=== PATIENT | female | born 2000 | race Caucasian/White ===

== ENCOUNTER 2021-07-08 12:02 | Emergency (ER) | payer MEDICAID ==
[~2021-07-08] VITALS: Ht 157.5 cm; Wt 55.9 kg
[2021-07-08] MEDS ORDERED: ondansetron/PF 4mg/2ml inj IV ONE (12:15)
[2021-07-08] MEDS ORDERED: morphine 4 MG/ML inj SYRINge IV ONE ×2 (12:15→15:20)
[2021-07-08 12:44] LABS: BASOPHILS % (AUTO) 0.4 % (0-1); EOSINOPHILS # (AUTO) 0.1 X10'3 (0-0.9); HEMATOCRIT 41.6 % (35.0-45.0); HEMOGLOBIN 14.2 g/dl (12.0-16.0); LYMPHOCYTES # (AUTO) 1.4 X10'3 (1.1-4.8); LYMPHOCYTES % (AUTO) 27.8 % (21-51); MEAN CORPUSCULAR HEMOGLOBIN 30.1 PG (27.0-31.0); MEAN CORPUSCULAR HGB CONC 34.1 g/dL (33.0-36.5); MEAN CORPUSCULAR VOLUME 88.2 FL (78-98); MEAN PLATELET VOLUME 8.1 FL (7.4-10.4); MONOCYTES # (AUTO) 0.5 X10'3 (0-0.9); MONOCYTES % (AUTO) 9.1 % (2-12); NEUTROPHILS # (AUTO) 3.2 X10'3 (1.8-7.7); NEUTROPHILS % (AUTO) 61.7 % (42-75); PLATELET COUNT 214 X10'3 (140-440); RED BLOOD COUNT 4.71 X10'6 (4.20-5.60); RED CELL DISTRIBUTION WIDTH 12.1 % (11.5-14.5); WHITE BLOOD COUNT 5.2 X10'3 (4.5-11.0)
[2021-07-08 13:16] LABS: ALANINE AMINOTRANSFERASE 21 U/L (12-78); ALBUMIN 4.5 G/DL (3.4-5.0); ALBUMIN/GLOBULIN RATIO 1.5 (1.1-1.5); ALKALINE PHOSPHATASE 64 IU/L (46-116); ANION GAP 13 (8-16); ASPARTATE AMINO TRANSFERASE 16 U/L (10-37); BILIRUBIN,TOTAL 0.7 MG/DL (0.1-1.0); BLOOD UREA NITROGEN 7 MG/DL (7-18); BUN/CREATININE RATIO 9.1 (6.6-38.0); CALCIUM 9.6 MG/DL (8.5-10.1); CHLORIDE 103 MMOL/L (99-107); CREATININE 0.77 MG/DL (0.40-0.90); GLUCOSE 98 MG/DL (70-104); POTASSIUM 3.7 MMOL/L (3.5-5.1); SODIUM 140 MMOL/L (135-145); TOTAL CARBON DIOXIDE 24.2 MMOL/L (24-32); TOTAL PROTEIN 7.5 G/DL (6.4-8.2); eGFR > 90 ML/MIN
[2021-07-08 14:49] LABS: CLARITY,URINE CLEAR (Clear); COLOR,URINE YELLOW (Yellow); GLUCOSE, URINE NEGATIVE (Neg); KETONES,URINE NEGATIVE (Neg); LEUKOCYTE ESTERASE ,URINE NEGATIVE (Neg); NITRITES, URINE NEGATIVE (Neg); OCCULT BLOOD,URINE TRACE-INTACT (Neg); PROTEIN,URINE NEGATIVE (Neg); UROBILINOGEN,URINE 0.2 E.U/dL (0.2-1.0)
[2021-07-08 14:51] LABS: URINE HCG NEGATIVE (NEG)
[2021-07-08 15:03] LABS: UA COLLECTION TYPE CLN CATCH MIDSTREAM
[2021-07-08 15:05] LABS: SQUAMOUS EPITHELIAL CELL,UR FEW /LPF (FEW)
[2021-07-08 15:06] LABS: BACTERIA,URINE FEW /HPF (Neg); RBC,URINE NONE SEEN /HPF (0-2); WBC,URINE NONE SEEN /HPF (0-4)
--- NOTE | 2021-07-08 15:48 | NUR ---
US HAS FINISHED
[2021-07-08] MEDS ORDERED: ONDA4TAB12 PO (16:16)
[2021-07-08] MEDS ORDERED: OXYC-658 PO (16:16)
--- NOTE | 2021-07-08 16:43 | NUR ---
Care of this pt with Yun ROQUEN and agree with all charting
[2021-07-08 16:45] VITALS: BP 115/68
== END 2021-07-08 16:47 | disposition home or self-care (01) ==
LOC: ER 12:03
DX: R10.2 Pelvic and perineal pain (principal); R10.31 Right lower quadrant pain; Z88.8 Allergy status to other drugs, medicaments and biological substances; Z79.899 Other long term (current) drug therapy
CPT/HCPCS: 36415; 76856; 80053; 81001; 81025; 85025; 85610; 93976; 96374; 96375; 96376; 99284; J2270; J2405

== ENCOUNTER 2021-07-30 09:34 | Emergency (ER) | payer MEDICAID, OTHER ==
[~2021-07-30] VITALS: Ht 157.5 cm; Wt 55.9 kg
[~2021-07-30 09:34] MED LIST: ONDA4TAB12 PO
[2021-07-30 09:40] VITALS: BP 116/81
[2021-07-30] MEDS ORDERED: IBUP-1986 PO (10:10)
[2021-07-30] MEDS ORDERED: HYDR-3965 PO ×2 (10:12→14:17)
== END 2021-07-30 10:18 | disposition home or self-care (01) ==
LOC: ER 09:34
DX: R10.2 Pelvic and perineal pain (principal)
CPT/HCPCS: 99283